=== PATIENT | male | born 1965 | race Caucasian/White ===

== ENCOUNTER 2017-03-23 14:32 | Inpatient (IN) | payer OTHER ==
[~2017-03-23] VITALS: Ht 188 cm; Wt 99.9 kg
[~2017-03-23 14:32] MED LIST: AUGMENTIN875 MG PO; HYDROCODON-ACE1 EAC7 PO
[2017-03-23 15:38] LABS: BILIRUBIN NEGATIVE; BLOOD NEGATIVE; COLOR AMBER ((YELLOW)); GLUCOSE (STRIP) NEGATIVE; KETONES 5; LEUKOCYTES NEGATIVE; NITRITE NEGATIVE; PROTEIN (STRIP) 30; SPECIFIC GRAVITY 1.024 (1.000-1.030); UROBILINOGEN 0.2 MG/DL (0.2-1.0)
[2017-03-23 15:42] LABS: EOSINOPHIL (%) 0.7 % (0-5); EOSINOPHIL COUNT 0.1 K/uL (0-0.3); HEMATOCRIT 45.3 % (38.0-50.0); IMMATURE GRANULOCYTE (%) 0.6 % (0.0-0.7); IMMATURE GRANULOCYTE COUNT 0.1 K/uL; INSTRUMENT ABS NEUTROPHIL CT 11.8 K/uL; LYMPHOCYTE COUNT 2.2 K/uL (1.0-2.8); MCH 32.3 PG (29.0-34.0); MCHC 33.8 G/DL (30.0-36.0); MCV 95.8 FL (86-99); MEAN PLAT.VOLUME 9.2 uM^3 (9.0-12.4); MONOCYTE (%) 11.2 % (3-12); MONOCYTE COUNT 1.8 K/uL (0-0.8); NEUTROPHIL (%) 73.8 % (45-76); NEUTROPHIL COUNT 11.8 K/uL (1.8-6.4); PLATELET COUNT 253 K/uL (156-360); RBC DIS.WIDTH-CV 12.4 % (11.8-14.6); RBC DIS.WIDTH-SD 43.8 % (39-53); RED BLOOD COUNT 4.73 M/uL (4.00-5.50)
[2017-03-23 15:42] LABS: ADD MIUA? NO
[2017-03-23 15:49] LABS: CHLORIDE 101 mEq/L (99-109); POTASSIUM 4.3 mEq/L (3.7-5.4); SODIUM 137 mEq/L (136-147)
[2017-03-23 15:51] LABS: GLUCOSE 96 mg/dL (70-99)
[2017-03-23 15:53] LABS: ANION GAP 10 MEQ/L (2-14)
[2017-03-23 15:55] LABS: GFR ESTIMATE (CALCULATED) > 59 mL/min/
[2017-03-23 15:56] LABS: UREA NITROGEN (BUN) 13 mg/dL (9-23)
[2017-03-23] MEDS ORDERED: LITE COAT ASPI325 M1 PO (17:36)
[2017-03-23] MEDS ORDERED: TYLENOL EXTRA500 MG PO (17:36)
[2017-03-23 20:10] VITALS: BP 150/97
[2017-03-23 20:31] LABS: POINT-OF-CARE METER ID UU13113717
[2017-03-23 23:28] LABS: POINT-OF-CARE METER ID UU13113717
[2017-03-23 23:43] VITALS: BP 145/94
[2017-03-24 03:29] VITALS: BP 152/96
[2017-03-24 05:51] LABS: POINT-OF-CARE METER ID UU14188625
[2017-03-24 07:24] LABS: EOSINOPHIL (%) 0.9 % (0-5); EOSINOPHIL COUNT 0.1 K/uL (0-0.3); IMMATURE GRANULOCYTE (%) 0.4 % (0.0-0.7); IMMATURE GRANULOCYTE COUNT 0.1 K/uL; INSTRUMENT ABS NEUTROPHIL CT 8.6 K/uL; LYMPHOCYTE COUNT 1.7 K/uL (1.0-2.8); MCH 32.9 PG (29.0-34.0); MCHC 34.4 G/DL (30.0-36.0); MCV 95.6 FL (86-99); MEAN PLAT.VOLUME 9.8 uM^3 (9.0-12.4); MONOCYTE (%) 12.5 % (3-12); MONOCYTE COUNT 1.5 K/uL (0-0.8); NEUTROPHIL (%) 71.5 % (45-76); NEUTROPHIL COUNT 8.6 K/uL (1.8-6.4); PLATELET COUNT 252 K/uL (156-360); RBC DIS.WIDTH-CV 12.5 % (11.8-14.6); RBC DIS.WIDTH-SD 44.3 % (39-53)
[2017-03-24 07:24] LABS: ADD MIUA? NO; BILIRUBIN NEGATIVE; BLOOD NEGATIVE; COLOR YELLOW ((YELLOW)); GLUCOSE (STRIP) NEGATIVE; KETONES NEGATIVE; LEUKOCYTES NEGATIVE; NITRITE NEGATIVE; PROTEIN (STRIP) NEGATIVE; SPECIFIC GRAVITY 1.017 (1.000-1.030); UCUL ADDED? NO; UROBILINOGEN 0.2 MG/DL (0.2-1.0)
[2017-03-24 07:26] VITALS: BP 145/94
[2017-03-24 07:48] LABS: ANION GAP 8 MEQ/L (2-14); CHLORIDE 103 MEQ/L (99-109); GFR ESTIMATE (CALCULATED) > 59 mL/min/; GLUCOSE 81 mg/dL (70-99); POTASSIUM 4.6 MEQ/L (3.7-5.4); SAMPLE HEMOLYSIS CHECK 0; SAMPLE ICTERIC CHECK 0; SAMPLE LIPEMIA CHECK 0; SODIUM 139 MEQ/L (136-147); UREA NITROGEN (BUN) 11 mg/dL (9-23)
[2017-03-24 11:09] VITALS: BP 186/98
[2017-03-24 20:10] VITALS: BP 156/86
[2017-03-25] VITALS (7 sets, daily range): BP systolic 145–185; BP diastolic 77–98
[2017-03-25 06:14] LABS: HEMATOCRIT 41.3 % (38.0-50.0); MCH 33.3 PG (29.0-34.0); MCHC 34.6 G/DL (30.0-36.0); MCV 96.3 FL (86-99); MEAN PLAT.VOLUME 9.4 uM^3 (9.0-12.4); PLATELET COUNT 222 K/uL (156-360); RBC DIS.WIDTH-CV 12.3 % (11.8-14.6); RBC DIS.WIDTH-SD 43.3 % (39-53); RED BLOOD COUNT 4.29 M/uL (4.00-5.50)
[2017-03-26 05:53] LABS: HEMATOCRIT 40.2 % (38.0-50.0); MCH 32.6 PG (29.0-34.0); MCHC 34.3 G/DL (30.0-36.0); MEAN PLAT.VOLUME 9.6 uM^3 (9.0-12.4); PLATELET COUNT 232 K/uL (156-360); RBC DIS.WIDTH-CV 12.2 % (11.8-14.6); RBC DIS.WIDTH-SD 42.4 % (39-53); RED BLOOD COUNT 4.23 M/uL (4.00-5.50)
[2017-03-26 06:21] LABS: ANION GAP 9 MEQ/L (2-14); CHLORIDE 110 MEQ/L (99-109); GFR ESTIMATE (CALCULATED) > 59 mL/min/; GLUCOSE 101 mg/dL (70-99); POTASSIUM 3.8 MEQ/L (3.7-5.4); SAMPLE HEMOLYSIS CHECK 0; SAMPLE ICTERIC CHECK 0; SAMPLE LIPEMIA CHECK 0; SODIUM 143 MEQ/L (136-147); UREA NITROGEN (BUN) 6 mg/dL (9-23)
[2017-03-26 07:21] VITALS: BP 162/87
[2017-03-26] MEDS ORDERED: CIPRO500 MG PO (08:44)
[2017-03-26] MEDS ORDERED: AMLODIPINE BESYL5 MG PO (08:44)
[2017-03-26] MEDS ORDERED: FLAGYL500 MG PO (08:44)
[2017-03-26 11:19] VITALS: BP 166/89
== END 2017-03-26 12:31 | disposition home or self-care (01) | DRG 392 ==
LOC: EME 14:32 → 5SOUTH 18:14 → EDOF 18:14 → 5SOUTH 19:44
PROVIDERS: Emergency Medicine; Hospitalist; Nurse Practitioner Adult Health
DX: K57.20 Diverticulitis of large intestine with perforation and abscess without bleeding (principal); E27.8 Other specified disorders of adrenal gland; I10 Essential (primary) hypertension; Z79.82 Long term (current) use of aspirin; Z68.28 Body mass index [BMI] 28.0-28.9, adult; Z83.3 Family history of diabetes mellitus
CPT/HCPCS: 74176; 80048; 81003; 82948; 83605; 85025; 85027; 86140; 87040; 87086; 87493; 99281; 99285; J0360; J1170; J1644; J1885; J2270; J2543; J3010; J7030; J7040; J7042; J7050; S0028

== ENCOUNTER 2017-09-26 01:56 | Emergency (ER) | payer OTHER ==
[~2017-09-26] VITALS: Ht 188 cm; Wt 104.7 kg
[~2017-09-26 01:56] MED LIST changes: +AMLODIPINE BESYL5 MG PO; +CIPRO500 MG PO; +FLAGYL500 MG PO; +LITE COAT ASPI325 M1 PO; +TYLENOL EXTRA500 MG PO
[2017-09-26 03:08] LABS: HEMATOCRIT 45.5 % (38.0-50.0); HEMOGLOBIN 15.9 G/DL (12.5-16.6); MCH 33.1 PG (29.0-34.0); MCHC 34.9 G/DL (30.0-36.0); MCV 94.8 FL (86-99); PLATELET COUNT 243 K/uL (156-360); RBC DIS.WIDTH-CV 12.6 % (11.8-14.6); RBC DIS.WIDTH-SD 43.9 % (39-53); WHITE BLOOD COUNT 7.5 K/uL (4.1-10.2)
[2017-09-26 03:17] LABS: CHLORIDE 109 mEq/L (99-109); POTASSIUM 4.2 mEq/L (3.7-5.4); SODIUM 140 mEq/L (136-147)
[2017-09-26 03:19] LABS: GLUCOSE 89 mg/dL (70-99)
[2017-09-26 03:23] LABS: CREATININE 1.1 mg/dL (0.6-1.3); GFR ESTIMATE (CALCULATED) > 59 mL/min/ (58.99-99999)
[2017-09-26 03:24] LABS: UREA NITROGEN (BUN) 15 mg/dL (9-23)
[2017-09-26 03:47] LABS: PTT 31.4 SEC (25-37)
[2017-09-26] MEDS ORDERED: ZITHROMAX Z-PA250 MG PO (05:26)
[2017-09-26] MEDS ORDERED: VENTOLIN HFA18 GM IH (05:27)
[2017-09-26 06:02] VITALS: BP 152/105
== END 2017-09-26 06:03 | disposition home or self-care (01) ==
LOC: EME 01:56
DX: J20.9 Acute bronchitis, unspecified (principal); J43.9 Emphysema, unspecified; R91.1 Solitary pulmonary nodule; I10 Essential (primary) hypertension; F17.200 Nicotine dependence, unspecified, uncomplicated
CPT/HCPCS: 71046; 71275; 80048; 85027; 85610; 85730; 99281; 99285; J7030